=== PATIENT | male | born 1955 | race Two or more races ===

== ENCOUNTER 2016-06-06 10:37 | Emergency (ER) | payer OTHER, MEDICAID ==
[~2016-06-06] VITALS: Ht 160 cm; Wt 49.9 kg
[2016-06-06 13:13] LABS: Basophils # (auto) 0 uL; Basophils % (auto) 0.2 % (0.0-2.0); Eosinophils # (auto) 0.2 uL; Eosinophils % (auto) 1.9 % (0.0-7.0); Hematocrit 31.4 % (41.0-53.0); Hemoglobin 10.2 g/dL (13.5-17.5); Lymphocytes # (auto) 1.4 uL; Lymphocytes % (auto) 12.6 % (10.0-50.0); Mean Corpuscular Hgb Conc. 32.4 g/dL (32.0-36.0); Mean Corpuscular Volume 89.6 fL (80.0-100.0); Mean Platelet Volume 7.9 fL (7.4-10.4); Monocytes # (auto) 0.7 uL; Monocytes % (auto) 6.2 % (0.0-12.0); Neutrophils # (auto) 8.6 uL; Neutrophils % (auto) 79.1 % (37.0-80.0); Platelet Count (auto) 249 10^3/uL (140-450); Red Cell Distribution Width 16.8 % (11.6-16.0); White Blood Cell 10.9 10^3/uL (4.4-10.8)
[2016-06-06 13:37] LABS: INR 1.07 (0.9-1.15); Partial Thromboplastin Time 24.7 sec (22.64-33.71)
[2016-06-06 14:09] VITALS: BP 172/75
[2016-06-06 15:08] LABS: Albumin 2.6 g/dL (3.4-5.0); BUN/Creatinine Ratio 6.7; Bilirubin, Total 0.4 mg/dL (0.2-1.0); Calcium 8.9 mg/dL (8.5-10.1); Total Protein 6.3 g/dL (6.4-8.2)
[2016-06-06 15:51] LABS: Potassium 5.9 mmol/L (3.5-5.1)
== END 2016-06-06 15:13 | disposition home or self-care (01) ==
LOC: ER 10:37
DX: J32.9 Chronic sinusitis, unspecified (principal); E11.22 Type 2 diabetes mellitus with diabetic chronic kidney disease; I12.9 Hypertensive chronic kidney disease with stage 1 through stage 4 chronic kidney disease, or unspecified chronic kidney disease; N18.9 Chronic kidney disease, unspecified
CPT/HCPCS: 36415; 70450; 71010; 80053; 84484; 85025; 85049; 85610; 85730